=== PATIENT | female | born 1990 | race Caucasian/White ===

== ENCOUNTER 2018-12-07 09:32 | Emergency (ER) | payer BC, SELFPAY ==
[2018-12-07] MEDS ORDERED: Ketorolac Tromethamine 30 MG/ML VIAL ONE (10:14)
--- NOTE | 2018-12-07 10:20 | RAD ---
Right hand 3 views HISTORY: Right hand injury. COMPARISON: 10/30/2007. FINDINGS: Joint spaces are preserved. No acute fracture, dislocation, or aggressive osseous erosions. IMPRESSION: No acute osseous abnormalities are demonstrated.
--- NOTE | 2018-12-07 10:24 | RAD ---
Right wrist 3 views HISTORY: Right wrist pain. FINDINGS: On the oblique view, there is subtle irregularity of the cortex along the lateral margin of the scaphoid waist. The other planes do not show a definite fracture. On the corresponding radiographic exam of the right hand, the scaphoid waist has a normal appearance. Ulnar negative varia nt. Ulnar styloid is intact. No other areas of concern. IMPRESSION: Scaphoid waist is favored to be without fracture. There is some irregularity of the scaph oid waist on the oblique view. Please correlate with point tenderness at the scaphoid. If there is tenderness and/or clinical concern, please consider immobilization and short-term radiographic follow -up.
== END 2018-12-07 12:00 | disposition home or self-care (01) ==
LOC: ERS 09:32
DX: S62.001A Unspecified fracture of navicular [scaphoid] bone of right wrist, initial encounter for closed fracture (principal); X58.XXXA Exposure to other specified factors, initial encounter
CPT/HCPCS: 25630; 96372; J1885